=== PATIENT | male | born 1955 | race Caucasian/White ===

== ENCOUNTER 2017-09-19 13:31 | Day surgery (SDC) | payer OTHER ==
[~2017-09-19] VITALS: Ht 188 cm; Wt 126.0 kg
[~2017-09-19 13:31] MED LIST: BUPIVACAINE/EPINEPHRINE 0.25% PF 30 ML VIAL ONE; DEXAMETHASONE SOD PHOS 4 MG/ML VIAL IV ONE; GLYCOPYRROLATE 1 MG/5 ML SYRINGE IV PUSH ONE; KETOROLAC TROMETHAMINE 30 MG/ML (IVP) VIAL IV PUSH ONE; LACTATED RINGER'S 1000 ML INJ 1,000 ML IV ONE; LIDOCAINE HCL 1% PF 5 ML SYRINGE OTHER ONE; NEOSTIGMINE 5 MG/5 ML SYRINGE IV PUSH ONE; ONDANSETRON HCL 4 MG/2 ML VIAL IV PUSH ONE; PROPOFOL 200 MG/20 ML AMP IV ONE; ROCURONIUM INJ 50 MG/5 ML SYRINGE IV PUSH ONE
[2017-09-19] MEDS ORDERED: LISI10TA3 PO (14:08)
[2017-09-19] MEDS ORDERED: SODIUM CHLORID 0.9% 500 ML IV PRN (14:15)
[2017-09-19] MEDS ORDERED: VANCOMYCIN HCL 1000 MG ON-CALL/NS 250 ML IV SCH ×2 (14:15)
[2017-09-19] MEDS ORDERED: CHLORHEXIDINE GLUCONATE 2 % 1 PACK (2 CLOTHS) TOPICAL PRN (14:15)
[2017-09-19] MEDS ORDERED: ceFAZolin 1,000 MG/NS 100 ML IV SCH ×2 (14:15)
[2017-09-19] MEDS ORDERED: METOPROLOL TARTRATE 25 MG TAB PO PRN (14:15)
[2017-09-19] MEDS ORDERED: LACTATED RINGER'S 1000 ML IV PRN (14:15)
[2017-09-19] MEDS ORDERED: POVIDONE IODINE 5% (ANTISEPSIS KIT) 4 APPLICATIONS EACH NARE PRN (14:15)
[2017-09-19] MEDS ORDERED: MULTTAB67 PO (14:20)
[2017-09-19] MEDS ORDERED: VITA250C3 PO (14:20)
[2017-09-19] MEDS ORDERED: CALC1TAB12 PO (14:20)
[2017-09-19] MEDS ORDERED: FIBE625T PO (14:20)
[2017-09-19] MEDS ORDERED: ACETAMINOPHEN 1000 MG/100 ML 100 ML IV SCH (14:30)
[2017-09-19] MEDS ORDERED: TUMERIC PO (14:39)
[2017-09-19] MEDS ORDERED: [UNRECOGNIZED DRUG - OTHER] PO (14:39)
[2017-09-19] MEDS ORDERED: [UNRECOGNIZED DRUG - OTHER] PO (14:39)
[2017-09-19] MEDS ORDERED: [UNRECOGNIZED DRUG - OTHER] PO (14:39)
[2017-09-19 14:40] LABS: AUTOMATED NEUTROPHIL # 4.2 TH/MM3 (1.8-7.7); BASOPHIL # 0.1 TH/MM3 (0-0.2); BASOPHIL % 0.8 % (0.0-2.0); EOSINOPHIL # 0.1 TH/MM3 (0-0.4); EOSINOPHIL % 0.8 % (0.0-4.0); HEMATOCRIT 45.2 % (39.0-51.0); HEMOGLOBIN 15.8 GM/DL (13.0-17.0); LYMPH % 35.7 % (9.0-44.0); LYMPHOCYTE # 2.7 TH/MM3 (1.0-4.8); MEAN CELL VOLUME 92.8 FL (80.0-100.0); MEAN CORPUSCULAR HEMOGLOBIN 32.5 PG (27.0-34.0); MEAN CORPUSCULAR HGB CONC 35.1 % (32.0-36.0); MEAN PLATELET VOLUME 8.2 FL (7.0-11.0); MONO % 7.8 % (0.0-8.0); MONOCYTE # 0.6 TH/MM3 (0-0.9); NEUT % 54.9 % (16.0-70.0); PLATELET COUNT 249 TH/MM3 (150-450); RED BLOOD COUNT 4.87 MIL/MM3 (4.50-5.90); RED CELL DISTRIBUTION WIDTH 13.4 % (11.6-17.2); WHITE BLOOD COUNT 7.6 TH/MM3 (4.0-11.0)
[2017-09-19] MEDS ORDERED: DHA100CA PO (14:43)
[2017-09-19] MEDS ORDERED: MULT1PAK PO (14:46)
[2017-09-19 15:00] LABS: BICARBONATE 25.1 MEQ/L (21.0-32.0); CALCIUM 8.8 MG/DL (8.5-10.1); CREATININE 0.85 MG/DL (0.60-1.30)
[2017-09-19] MEDS ORDERED: ACETAMINOPHEN 1000 MG/100 ML 0 ML IV ONE (16:12)
[2017-09-19] MEDS ORDERED: MIDAZOLAM HCL 2 MG/2 ML VIAL ONE (16:13)
[2017-09-19] MEDS ORDERED: ceFAZolin INJ 1,000 MG VIAL ONE (16:37)
[2017-09-19] MEDS ORDERED: VANCOMYCIN HCL 1000 MG VIAL ONE (16:37)
[2017-09-19] MEDS ORDERED: DO NOT ADM ANY ANTICOAGULANT DRUGS PRN (18:15)
--- NOTE | 2017-09-19 18:17 | HHI.PR ---
cc: Tony Alatorre MD Immediate Post Op Note Procedure Date: Sep 19, 2017 Pre Op Diagnosis: Appendiceal mass Post Op Diagnosis: Same Surgeon: Tony Alatorre [employer] Examiner(s): VINCENZO Pascal Procedure: Laparoscopic appendectomy Diagnostic laparoscopy Biopsy peritoneal lesions Findings: Mass in appendix Small lesions on peritoneum RLQ Complications: None Specimen(s) removed: Appendix to pathology Peritoneal lesions to pathology Estimated blood loss: 25 ml Anesthesia: General Drains: None IVF (1100 ml) Patient to: PACU Patient Condition: Good Date/Time of Procedure: SEE SURGICAL CARE RECORD Tony Alatorre MD Sep 19, 2017 18:17
[2017-09-19] MEDS ORDERED: HYDR-3288 PO (18:19)
[2017-09-19] MEDS ORDERED: ACETAMINOPHEN/HYDROcodone 325 MG/5 MG TAB PO PRN ×2 (18:30)
[2017-09-19] MEDS ORDERED: diphenhydrAMINE HCL 25 MG CAP PO PRN (18:30)
[2017-09-19] MEDS ORDERED: NALOXONE HCL 0.4 MG/ML AMP IV PUSH PRN (18:30)
[2017-09-19] MEDS ORDERED: MORPHINE SULFATE 4 MG/ML INJ IV PUSH PRN (18:30)
[2017-09-19] MEDS ORDERED: KETOROLAC TROMETHAMINE 30 MG/ML (IVP) VIAL IVP PRN (18:30)
[2017-09-19] MEDS ORDERED: ONDANSETRON HCL 4 MG/2 ML VIAL IV PUSH PRN (18:30)
[2017-09-19] MEDS ORDERED: Post-op Orders (for Pharmacy) XX ONE (18:30)
[2017-09-19 19:00] VITALS: TEMP 97.8
[2017-09-19] MEDS ORDERED: *ONDANSETRON 4 MG VIAL PERIprocedural Use ONLY ONE (19:09)
[2017-09-19 19:22] VITALS: BP 136/64; PULSE 70; RESP 16; O2SAT 94
--- NOTE | 2017-09-20 21:05 | MP ---
cc: TONY ALATORRE M.D., HARRY M.D. Corrected: 09/25/2017 DATE OF SURGERY: 09/19/2017 PREOPERATIVE DIAGNOSIS: Lesion at appendiceal orifice POSTOPERATIVE DIAGNOSIS: Lesion at appendiceal orifice with peritoneal lesions noted. OPERATIVE PROCEDURE PERFORMED: 1. Laparoscopic appendectomy. 2. Biopsy of peritoneal lesions. SURGEON: Tony Alatorre MD. ANESTHESIA: General endotracheal. ESTIMATED BLOOD LOSS: 25 mL. FLUIDS: 1100 mL crystalloid. COMPLICATIONS: None. DRAINS: None. SPECIMEN: Appendix and peritoneal lesions to pathology. DESCRIPTION OF THE PROCEDURE IN DETAIL: The patient was taken to the operating room and placed on the operating table in the supine position. After an adequate level of general endotracheal anesthesia was achieved, the abdomen was shaved, prepped and draped. Time-out was taken confirming the correct patient, site and procedure to be performed. Incision was made in the umbilicus and carried through the fascia sharply after injecting local anesthetic. The peritoneal cavity was directly visualized. A 12 mm balloon trocar was inserted and the balloon inflated. The abdomen was insufflated. The patient was placed in Trendelenburg position. Two 5 mm trocars were then placed with the first in the right lower quadrant and second in the suprapubic region. Both entered the abdominal cavity under direct vision uneventfully. The appendix was then manipulated into view and the mesoappendix taken down with the harmonic scalpel. The lesion seen on colonoscopy and on CT scan was easily visualized. The appendix was further mobilized beyond the base and the cecum was also mobilized as well. This allowed for transection of the base of the cecum with the appendix in a single specimen. A powered stapler with a blue load was brought in via the umbilical port and placed across the base of the cecum. This allowed for removal of the appendix without compromising the ileocecal valve. The stapler was fired and a second load was fired to complete the staple line all the way across the base of the cecum. When this was completed, the appendix and the very base of the cecum was placed into an EndoCatch device and removed via the umbilical port and passed off the table. When this had been completed, the stump was examined and seen to be clean and dry. Down in the right lower quadrant along the pelvic sidewall, there were small what appeared to be small peritoneal lesions. A sampling of these were taken with the harmonic scalpel. These were completely removed and submitted for specimen analysis in formalin. With this completed, the abdomen was reexamined and all irrigation aspirated. With hemostasis assured, insufflation was discontinued. The 5-mm trocars were removed under direct vision. No bleeding was noted from the trocar sites. The laparoscope and umbilical port were then removed as well. The fascia was closed in the umbilicus with both [id number] and simple interrupted 0 Vicryl sutures as the incision had to be lengthened slightly to allow for removal of the appendix. With completion of the fascial repair, the remaining local anesthetic was injected into the periumbilical fascia. Skin was closed at each of the trocar sites with 4-0 Vicryl in an interrupted buried fashion. All trocar sites were dressed with Steri-Strips. The patient was extubated and taken back to the recovery room in stable condition. He tolerated procedure well. MD DULCE Hines/JOSE CRUZ /8:09 PM /8:30 PM TAYLOR
--- NOTE | 2017-09-20 23:09 | EKG ---
Date Performed: 09/19/2017 Time Performed: 14:00:57 PTAGE: 62 years EKG: Sinus rhythm INDETERMINATE AXIS MODERATE T-WAVE ABNORMALITY, CONSIDER ANTERIOR ISCHEMIA ABNORMAL ECG NO PREVIOUS TRACING DOCTOR: Brendon Grijalva Interpretating Date/Time 09/20/2017 23:08:01
== END 2017-09-19 19:40 | disposition home or self-care (01) ==
LOC: HSDC 13:31
PROVIDERS: ATTEND Surgery Trauma Surgery
DX: D12.1 Benign neoplasm of appendix (principal); K40.20 Bilateral inguinal hernia, without obstruction or gangrene, not specified as recurrent; I10 Essential (primary) hypertension
CPT/HCPCS: 00840; 44970; 80048; 85025; 88304; 88305; 93005; J0131; J0690; J1100; J1885; J2250; J2405; J2710; J3010; J3370; J7120